=== PATIENT | female | born 1980 | race Caucasian/White ===

== ENCOUNTER 2017-02-21 13:26 | Observation (INO) | payer OTHER ==
[2017-02-20 10:19] LABS: HEMATOCRIT 41.7 % (36.0-48.0); HEMOGLOBIN 14.2 g/dL (12.0-16.0)
[2017-02-20 10:26] LABS: BUN (BLOOD UREA NITROGEN) 9 MG/DL (6-23); CALCIUM, SERUM 9.2 MG/DL (8.5-10.4); CHLORIDE, SERUM 108 MMOL/L (96-112); CREATININE 0.78 MG/DL (0.55-1.02); GFR AFRICAN AMERICAN 113 ML/MIN (>=60); GFR NON AFRICAN AMERICAN 98 ML/MIN (>=60); GLUCOSE, SERUM 86 MG/DL (60-99); POTASSIUM, SERUM 4.1 MMOL/L (3.5-5.3); SODIUM, SERUM 142 MMOL/L (135-148)
[2017-02-20 10:30] LABS: CO2 (CARBON DIOXIDE) 34 MMOL/L (24-34)
--- NOTE | ~2017-02-21 | OP ---
Record Of Operation [facility] [address] [place]. [address] NAME: KARLEE DAY : 82 STATUS : ADM IN [facility]#: [id number] AGE: 37 ADM/REG DATE : 02/21/17 MR#: [id number] REPORT SERV DATE: 02/22/17 DICTATED BY: AZRA GONZALEZ DATE: 02/21/17 REPORT STATUS : Draft TRANSCRIBED BY: MODL DATE: 02/21/17 DATE OF PROCEDURE: 02/21/2017 PREOPERATIVE DIAGNOSIS: Thyroid cancer, left thyroid lobe. POSTOPERATIVE DIAGNOSIS: Thyroid cancer, left thyroid lobe. PROCEDURE: Total thyroidectomy using nerve monitoring. SURGEON: Azar Gonzalez MD. WINE STEWARD: Aron Londono MD. ANESTHESIA: General. ESTIMATED BLOOD LOSS: 25 mL. SPECIMEN: Thyroid. COMPLICATIONS: None. 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 Total thyroidectomy with possible central neck dissection was recommended and the procedure with the risks including bleeding, infection, injury to the recurrent laryngeal nerve causing hoarseness, low calcium following surgery, and the possibility of needing additional treatment were all explained. She agreed to proceed. DESCRIPTION OF PROCEDURE: After consent was obtained, she was taken to the operating room and placed in supine position on the operating table. General endotracheal anesthesia was administered. A shoulder roll was placed. Neck was extended. She was placed in semi- Velasquez's position. Preoperative antibiotics were administered. SCDs were placed. Time-out was performed. We created a 5 cm skin crease incision using a 15 blade scalpel. Electrocautery was then used to dissect through the subcutaneous tissues and platysma. Subplatysmal flaps were created and the strap muscles were in the midline using electrocautery. We began on the left side. We elevated the left strap muscle and dissected the thyroid away from strap muscle back to the carotid. There was no evidence of extrathyroidal extension for invasion into the strap muscles. We began at the superior pole, swept the tissues medial to the superior pole towards the larynx to avoid injury to the external branch of the superior laryngeal nerve. The superior pole vessels were divided sequentially using the Harmonic Scalpel and ligated using clips. The gland was rotated anteromedially. This exposed the superior parathyroid gland. Its attachments were divided using Harmonic scalpel and it was rotated laterally. We then carefully dissected the inferior parathyroid gland Record Of Operation [facility] [address] [place]. [address] NAME: KARLEE DAY : 82 STATUS : ADM IN PAT#: [id number] AGE: 37 ADM/REG DATE : 02/21/17 MR#: [id number] REPORT SERV DATE: 02/22/17 DICTATED BY: AZAR GONZALEZ YUDY DATE: 02/21/17 REPORT STATUS : Draft TRANSCRIBED BY: MODRajesh DATE: 02/21/17 off the lower pole of the thyroid by scoring the peritoneum and rotating it laterally. We identified the inferior thyroid artery and both branching vessels into the parathyroids, divided the inferior thyroid artery high up on the thyroid using the Harmonic Scalpel and ligated using a 3-0 silk tie. I then identified the recurrent laryngeal nerve. It coursed posterior to the inferior thyroid artery. It tested well with the nerve monitor. We divided the tissues anterior to the nerve between clips up to the ligament of Felton. Ligament of Felton was divided sharply and tied using 3-0 silk ties. The remaining tracheal attachments were divided using electrocautery, and the lower pole vessels were divided using the Harmonic Scalpel and ligated using clips. We then replaced the left lobe into the left neck and proceeded to the right. In similar fashion, we elevated the right strap muscle and dissected the thyroid right strap muscle back to the carotid. There were no nodules with any extrathyroidal extension. We began at the superior pole and swept the tissues medial to the superior pole towards the larynx. We divided the superior pole vessels using a Harmonic Scalpel and ligated using clips. The gland was rotated anteromedially. This exposed the superior parathyroid gland. Its attachments were divided using the harmonic Scalpel and was rotated laterally. We identified the inferior thyroid artery and then the recurrent laryngeal nerve was re- explored for the recurrent laryngeal nerve, however, we were unable to identify it initially. We took the inferior parathyroid gland down, rotated it laterally and still once again were unable to find any evidence of the nerve. We then suspecting that there was possible nonrecurrent right laryngeal nerve, we used the nerve monitor and identified a nonrecurrent nerve on the right. We then divided the lower pole vessels using Harmonic Scalpel and ligated using clips. The tracheal attachments were divided using electrocautery up to the ligament of Felton. We then carefully took down the ligament of Felton sharply and tied using 3-0 silk ties. The remaining tracheal attachments were divided using electrocautery. A stitch was placed in the left superior pole and the whole gland was passed off the field. We once again tested both nerves and they tested well with the nerve monitor. We inspected the left central neck. Due to her size, there was virtually no central neck tissues, there were no palpable or visible nodes in the left neck. We then elected to conclude the case. At the conclusion of the case, we had three viable parathyroid glands, the right superior, right inferior, and left superior. We then placed Surgicel on both sides of the neck. Hemostasis was good. Reapproximated the strap muscles in the midline using a running 3-0 Vicryl suture with a small gap left inferiorly. The platysma was reapproximated with interrupted 4-0 Vicryl sutures. A running 5-0 Monocryl deep dermal suture was placed followed by running 5-0 Prolene subcuticular stitch. The neck was cleaned. Dermabond was applied and the Prolene was removed. The patient tolerated the procedure well, was extubated in the operating room, sent to the recovery room in stable condition. VEENA/TURNER Azar Gonzalez MD Record Of Operation [address] [address] NAME: KARLEE DAY : 82 STATUS : ADM IN [facility]#: [id number] AGE: 37 ADM/REG DATE : 02/21/17 MR#: [id number] REPORT SERV DATE: 02/22/17 DICTATED BY: AZAR GONZALEZ LEBANON DATE: 02/21/17 REPORT STATUS : Draft TRANSCRIBED BY: TURNER DATE: 02/21/17 / [id number] CC: Azar Gonzalez MD
[~2017-02-21 13:26] MED LIST: CALTRA600D PO; MULTIPLE VIT; MULTIPLE VIT PO
[2017-02-22 06:40] LABS: BASOPHILS 0.1 %; BASOPHILS ABSOLUTE 0.01 10/3/uL (0.0-0.16); EOSINOPHILS 0 %; HEMATOCRIT 39.7 % (36.0-48.0); HEMOGLOBIN 13.4 g/dL (12.0-16.0); IMMATURE GRANULOCYTES 0.2 %; IMMATURE GRANULOCYTES ABSOLUTE 0.02 10/3/uL (0.0-0.11); LYMPHOCYTES 17.8 %; LYMPHOCYTES ABSOLUTE 1.49 10/3/uL (0.67-4.30); MEAN CORPUS HGB CONC 33.8 g/dL (32.0-36.0); MEAN CORPUSCULAR HEMOGLOB 30.8 pg (26.0-34.0); MEAN CORPUSCULAR VOLUME 91.3 fL (80-100); MEAN PLATELET VOLUME 10.5 fL (9.2-13.0); MONOCYTES 7.9 %; MONOCYTES ABSOLUTE 0.66 10/3/uL (0.21-1.20); NEUTROPHILS ABSOLUTE 6.17 10/3/uL (2.02-8.40); PLATELET COUNT 209 10/3/uL (150-400); RBC DISTRIBUTION WIDTH 12.8 % (12.0-16.0); RED CELL COUNT 4.35 10/6/uL (4.0-5.6)
[2017-02-22 06:48] LABS: MANUAL DIFF NO %; WHITE BLOOD CELLS 8.4 10/3/uL (4.5-10.5)
[2017-02-22 06:55] LABS: BUN (BLOOD UREA NITROGEN) 8 MG/DL (6-23); CALCIUM, SERUM 8.4 MG/DL (8.5-10.4); CHLORIDE, SERUM 106 MMOL/L (96-112); CREATININE 0.77 MG/DL (0.55-1.02); GFR AFRICAN AMERICAN 115 ML/MIN (>=60); GFR NON AFRICAN AMERICAN 99 ML/MIN (>=60); GLUCOSE, SERUM 95 MG/DL (60-99); POTASSIUM, SERUM 4.3 MMOL/L (3.5-5.3); SODIUM, SERUM 142 MMOL/L (135-148)
[2017-02-22 06:59] LABS: CO2 (CARBON DIOXIDE) 29 MMOL/L (24-34)
[2017-02-22] MEDS ORDERED: SYN1 PO (08:00)
[2017-02-22] MEDS ORDERED: NORCO1 TA1 PO (08:01)
== END 2017-02-22 10:50 | disposition home or self-care (01) ==
LOC: SDC 13:26 → 5SO 19:37
PROVIDERS: Surgery
PROC: 0GTK0ZZ Resection of Thyroid Gland, Open Approach (ICD-10-PCS; principal; 2017-02-21 15:00)
DX: C73 Malignant neoplasm of thyroid gland (principal); Z79.899 Other long term (current) drug therapy
CPT/HCPCS: 80048; 84703; 85014; 85018; 85025; 88307; 88341; 88342; 96374; A9270-GY; G0378; J0330; J0690; J1170; J2250; J2270; J2405; J3010